=== PATIENT | female | born 1970 | race Caucasian/White ===

== ENCOUNTER 2016-05-30 08:10 | Emergency (ER) | payer OTHER ==
--- NOTE | 2016-05-30 09:23 | RAD ---
Exam: Three-view right foot COMPARISON: None INDICATION: Fall 2 days ago, right foot pain, pain with weightbearing. Findings: AP, lateral and oblique views of the right foot were obtained. Overall normal bone mineralization. No apparent soft tissue swelling. Alignment is within normal limits. No acute fracture is identified. An os intermetatarseum is noted. Bones otherwise unremarkable. IMPRESSION: No acute osseous abnormality in the right foot.
== END 2016-05-30 10:09 | disposition home or self-care (01) ==
LOC: ED 08:10
DX: S93.601A Unspecified sprain of right foot, initial encounter (principal); F17.210 Nicotine dependence, cigarettes, uncomplicated; W01.0XXA Fall on same level from slipping, tripping and stumbling without subsequent striking against object, initial encounter; Y93.01 Activity, walking, marching and hiking; Y92.009 Unspecified place in unspecified non-institutional (private) residence as the place of occurrence of the external cause